=== PATIENT | female | born 1995 | race Caucasian/White ===

== ENCOUNTER 2023-01-08 12:01 | Emergency (ER) | payer OTHER ==
[2023-01-08 12:31] VITALS: BP 117/73
[2023-01-08 12:49] LABS: RAPID STREP SCREEN Negative (Negative)
[2023-01-08] MEDS ORDERED: DEXAMETHASONE 10 MG/ML VIAL PO STA (13:53)
[2023-01-08] MEDS ORDERED: CHERRY SYRUP 10 ML UDC PO ONE (13:53)
--- NOTE | 2023-01-08 13:55 | ED Physician Documentation ---
History of Present Illness - Stated complaint Stated Complaint: SORE THROAT - Chief complaint Chief Complaint: Heent - Additonal information Additional information: 27-year-old female presents emergency department for evaluation of day 3 sore throat. Over the last few days she has been having fevers up to 101 at home. No cough or congestion. She has been having some exudate especially on her left tonsillar bed. Reports that her kids had norovirus 2 weeks ago but she denies any vomiting or diarrhea. Also endorsing headache and generalized body aches. Review of Systems Constitutional: reports: Fever Eyes: reports: Reviewed and negative Ears: reports: Reviewed and negative Throat: reports: Sore throat, Swollen tonsils Cardiac: reports: Reviewed and negative Respiratory: reports: Reviewed and negative GI: reports: Reviewed and negative PD PAST MEDICAL HISTORY - Present Medications Home Medications: Ambulatory Orders Medication Instructions Recorded Confirmed Penicillin V Potassium 500 mg PO BID #14 tablet 01/08/23 - Allergies Allergies/Adverse Reactions: Allergies Allergy/AdvReac Type Severity Reaction Status Date / Time No Known Drug Allergies Allergy Verified 01/08/23 12:32 PD ED PE NORMAL - General General: Alert and oriented X 3, No acute distress, Well developed/nourished - HEENT HEENT: Atraumatic, Ears normal, Moist mucous membranes. No: Pharynx benign (Generally erythematous posterior oropharynx. Tonsillar exudate bilaterally left greater than right. Tender anterior cervical lymphadenopathy. No trismus. Normal phonation normal swallow) - Neck Neck: Supple, no meningeal sign, Other (Full range of motion of the neck in all planes). No: No adenopathy (Tender anterior cervical lymphadenopathy) - Cardiac Cardiac: RRR, No murmur - Abdomen Abdomen: Normal bowel sounds, Soft, Non tender, Non distended Results - Vitals Vitals: Vital Signs - 24 hr 01/08/23 12:28 Temperature 36.4 C L Heart Rate 91 Respiratory 18 Rate Blood Pressure 117/73 O2 Saturation 100 Oxygen O2 Source Room air - Labs Labs: Laboratory Tests 01/08/23 12:34 Group A Strep Rapid Negative PD Medical Decision Making - ED course Complexity details: reviewed results, re-evaluated patient, considered differential, d/w patient ED course: Well-appearing 27-year-old female presents emergency department for evaluation of now day 3 sore throat, fevers up to 101, tonsillar exudate, headache and body aches. Rapid strep testing here is negative though patient does have 4 of the 6 Cent[facility] criteria to consider empiric antibiotics. I discussed with patient the option of waiting for culture results versus starting penicillin and she elects to begin penicillin today which is reasonable given her exam. Patient was also given a single dose of Decadron here to help with pain and inflammation. Clinically patient does not have any findings suggest RPA or [employer]. She is discharged home in stable condition with usual emergent return precautions discussed for worsening symptoms. Departure - Departure Disposition: Home, Self Care Clinical Impression: Pharyngitis Qualifiers: Pharyngitis/tonsillitis etiology: other specified organisms Qualified Code(s): J02.8 - Acute pharyngitis due to other specified organisms Condition: Stable Record reviewed to determine appropriate education?: Yes Instructions: ED Strep Pharyngitis Poss Prescriptions: Penicillin V Potassium 500 mg PO BID #14 tablet Comments: You are seen today in the emergency department because you have been having fever, sore throat and tonsillar exudate. Your rapid strep testing is negative but on exam of the throat and in conjunction with the rest of your symptoms it would be appropriate for us to start a course of antibiotics for the possibility of strep pharyngitis. I sent a prescription for penicillin to the [facility] in [place]. We have given you a single dose of Decadron here in the emergency department. This is a steroid that will help with pain and swelling over the next 48 to 72 hours. In general I do recommend he take Tylenol and ibuprofen for discomfort. Gargle with warm salt water. Return to the ER if you find that you are having worsening symptoms.
== END 2023-01-08 14:03 | disposition home or self-care (01) ==
LOC: ED 12:01
DX: J02.8 Acute pharyngitis due to other specified organisms (principal)
CPT/HCPCS: 87070; 87077; 87430; 99283; A9270